=== PATIENT | male | born 2000 | race Caucasian/White ===

== ENCOUNTER 2023-06-12 18:29 | Emergency (ER) | payer OTHER ==
[~2023-06-12] VITALS: Ht 190.5 cm; Wt 81.6 kg
== END 2023-06-12 20:30 | disposition home or self-care (01) ==
LOC: ER 18:29
DX: S61.412A Laceration without foreign body of left hand, initial encounter (principal); W26.0XXA Contact with knife, initial encounter; Y93.9 Activity, unspecified; Y92.9 Unspecified place or not applicable; Y99.9 Unspecified external cause status